=== PATIENT | female | born 1995 | race Caucasian/White ===

== ENCOUNTER 2020-04-26 02:03 | Inpatient (IN) ==
[2020-04-26] MEDS ORDERED: PENICILLIN G POTASSIUM 6 MU in DEXTROSE 5% 250 ML IV STA (02:34)
[2020-04-26] MEDS ORDERED: PENICILLIN G POTASSIUM 3 MU in DEXTROSE 5% 100 ML IV PRN (02:34)
[2020-04-26] MEDS ORDERED: OXYTOCIN 30 UNITS/500 ML BAG IV PRN ×2 (02:34→08:18)
[2020-04-26] MEDS ORDERED: LACTATED RINGER'S 1,000 ML IV PRN (02:34)
[2020-04-26 03:06] LABS: Hematocrit (blood only) 38.1 % (37-47); Hemoglobin 13.3 g/dL (12.0-16.0); Mean Corpuscular Hemoglobin 30.9 pg (25-34); Mean Corpuscular Hgb Conc 34.9 g/dL (32-36); Mean Corpuscular Volume 88.6 fL (80-100); Platelet Count 199 K/uL (130-400); RDW Coefficient of Variation 13.3 % (11.5-14.5); RDW Standard Deviation 42.7 fL (36.4-46.3); White Blood Count 12.98 K/uL (4.8-10.8)
--- NOTE | 2020-04-26 03:12 | Anesthesiology Consultation ---
Date of Service April 26, 2020 Assessment & Plan (1) Encounter for pre-operative examination: Chart Review Chart Review: Acceptable Risk for Surgery and Patient NOT seen in Pre Admission Testing Consults Requested none History Allergies Allergy/AdvReac Type Severity Reaction Status Date / Time No Known Allergies Allergy Verified 04/26/20 02:31 Medications Home Medications Medication Instructions Recorded Confirmed Last Taken prenat.vits,rola,ytq-oqdw-trsoq 1 tab PO DAILY 09/17/19 04/26/20 04/25/20 08:00 levothyroxine 150 mcg tablet 150 mcg PO DAILY #30 tab 03/04/20 04/24/20 04/25/20 06:00 Active Medications Generic Name Dose Route Start Last Admin Trade Name Freq PRN Reason Stop Dose Admin Penicillin G Potassium 6 mu/ 262 mls @ 262 mls/hr 04/26/20 02:34 04/26/20 02:53 Dextrose IV 04/26/20 03:33 250 mls/hr NOW STA Administration Lactated Ringer's 1,000 mls @ 125 mls/hr 04/26/20 02:34 04/26/20 02:50 Lr IV 04/28/20 02:33 125 mls/hr .Q8H PRN Administration L&D Protocol Protocol Past Medical History Medical History History of chicken pox Hypothyroidism Papillary carcinoma of thyroid Exercise / Class Metabolic Activity II 4-5 Yardwork/Stairs/Walk up hill Past Family History Family History Mother Breast cancer, Onset Age: 41 Mother got breast cancer at age 41 and 51 in the same location. Father Hypertension Myocardial infarction Dyslipidemia Grandmother (Maternal) Diabetes Past Surgical History Surgical History H/O total thyroidectomy (~12/2019) S/P wisdom tooth extraction (~2012) Past Anesthesia History No Hx of Anesthesia Complications and No Family Hx of Anesthesia Complications History of PONV No Hx of PONV and No Hx of Motion Sickness Social History Smoking Status: Never smoker Do You Dip or Chew Tobacco: No Hx Alcohol Use: No Hx Substance Use: No Physical Exam Vital Signs Last Vital Signs Pulse 107 H 04/26/20 03:09 BP 135/90 04/26/20 02:36 Pulse Ox 91 04/26/20 03:09 Testing Laboratory Results 04/26/20 02:48
--- NOTE | 2020-04-26 04:25 | History & Physical Report ---
Date of Service April 26, 2020 Assessment & Plan (1) Group B streptococcal infection during : 24yo at 39.4 weeks GA. Active labor 1. Fetus: Cat 1 2. Labor: Active 3. GBS Positive: PCN (2) Need for rhogam due to Rh negative mother: (3) Supervision of normal first : (4) Normal labor: History of Present Illness Primary Care Provider: Zofia Ayala, 24yo at 39.4 weeks GA. Presents in active labor. complicated by GBS positive, Hx thyroid cancer, Rh negative. OB Labs: Blood Type AB Negative 09/25/19 Antibody Screen NEGATIVE 02/07/20 Hemoglobin 11.6 g/dL (12.0-16.0) L 02/07/20 Hematocrit 34.4 % (37-47) L 02/07/20 Mean Corpuscular Volume 87.0 fL (80-100) 09/25/19 Platelet Count 318 K/uL (130-400) 09/25/19 Rubella IgG Antibody Immune (Immune) 09/25/19 Rapid Plasma Reagin Nonreactive (Nonreactive) 09/25/19 Hepatitis B Surface Antigen Neg (Neg) 09/25/19 HIV (1&2) Ab and P24 Ag, 4th Gener Neg (Neg) 09/25/19 Glucose 1 Hour 50 gm Load 101 mg/dl (70-130) 02/07/20 OB Optional Labs: Chlamydia trachomatis RNA NOT DETECTED (NOT DETECTED) 09/25/19 Neisseria gonorrhoeae RNA NOT DETECTED (NOT DETECTED) 09/25/19 Thyroid Stimulating Hormone (TSH) 0.586 uIu/ml (0.300-4.500) 03/28/20 Allergies Allergy/AdvReac Type Severity Reaction Status Date / Time No Known Allergies Allergy Verified 04/26/20 02:31 Home Medications Medication Instructions Recorded Confirmed Type prenat.vits,rola,lcf-qszu-nymrh 1 tab PO DAILY 09/17/19 04/26/20 History levothyroxine 150 mcg tablet 150 mcg PO DAILY #30 tab 03/04/20 04/24/20 Rx Patient History Medical History History of chicken pox Hypothyroidism Papillary carcinoma of thyroid Surgical History H/O total thyroidectomy (~12/2019) S/P wisdom tooth extraction (~2012) Family History Mother Breast cancer, Onset Age: 41 Mother got breast cancer at age 41 and 51 in the same location. 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 Feels Safe at Home: Yes Safety Concerns: Feels Safe At This Time Physical Exam Genitourinary: OB Exam Abdomen: + vertex Manual OB Exam: + cervical dilation 7 cm, + cervical effacement 90% and + station -1 OB Exam Monitor Tracing: + external FHT monitor used, + external uterine monitor used and + category I Results & Data ([facility]) Vital Signs (Past 12 Hours) Vital Signs Pulse BP Pulse Ox 04/26/20 02:56 99 H 89 L 04/26/20 02:53 111 H 100 04/26/20 02:48 96 H 99 04/26/20 02:43 101 H 99 04/26/20 02:36 129 H 135/90 04/26/20 02:25 126 H 135/101 H Coding Level of Care Code None Diagnoses Group B streptococcal infection during O98.819; B95.1 Need for rhogam due to Rh negative mother Z29.13 Supervision of normal first Z34.00 Normal labor O80; Z37.9
--- NOTE | 2020-04-26 04:27 | Labor Progress Brief Note ---
Date of Service April 26, 2020 Subjective Reason For Note: Routine Evaluation Current Pain Level(1-10): 10 Assessment & Plan (1) Group B streptococcal infection during : 24yo at 39.4 weeks GA. Active labor 1. Fetus: Cat 1 2. Labor: Active. Complete and will start pushing per patient request. SROM during exam 3. GBS Positive: PCN (2) Need for rhogam due to Rh negative mother: (3) Supervision of normal first : (4) Normal labor: Admission and Anticipated Discharge Date Admission Date: April 26, 2020 Physical Exam Genitourinary: OB Exam Abdomen: + vertex Manual OB Exam: + cervical dilation 10 cm, + cervical effacement 100%, + station + 1 and + amniotic fluid (SROM during exam) clear OB Exam Monitor Tracing: + external FHT monitor used, + external uterine monitor used, + category I and + normal FHT variability; no early decelerations present, no late decelerations present and no variable decelerations Results & Data ([facility]) Vital Signs (Past 12 Hours) Vital Signs Temp Pulse Resp BP Pulse Ox 04/26/20 04:22 105 H 100 04/26/20 04:17 103 H 100 04/26/20 04:12 118 H 91 04/26/20 04:07 119 H 97 04/26/20 04:06 110 H 90 04/26/20 04:02 117 H 98 04/26/20 03:57 115 H 99 04/26/20 03:52 99 H 91 04/26/20 03:45 119 H 93 04/26/20 03:40 116 H 100 04/26/20 03:36 114 H 92 04/26/20 03:35 106 H 98 04/26/20 03:30 111 H 100 04/26/20 03:17 111 H 92 04/26/20 03:16 111 H 98 04/26/20 03:11 104 H 98 04/26/20 03:09 107 H 91 04/26/20 03:06 103 H 97 04/26/20 03:05 36.7 C 56 L 18 87 L 04/26/20 03:01 56 L 87 L 04/26/20 02:56 99 H 89 L 04/26/20 02:53 111 H 100 04/26/20 02:48 96 H 99 04/26/20 02:43 101 H 99 04/26/20 02:36 129 H 135/90 04/26/20 02:25 126 H 135/101 H Coding Level of Care Code None Diagnoses Group B streptococcal infection during O98.819; B95.1 Need for rhogam due to Rh negative mother Z29.13 Supervision of normal first Z34.00 Normal labor O80; Z37.9
[2020-04-26] MEDS ORDERED: LIDOCAINE HCL 1% 20 ML VIAL ONE (06:54)
[2020-04-26] MEDS ORDERED: SUPERCREAM 0.870% 15 GM JAR EXT PRN (08:18)
[2020-04-26] MEDS ORDERED: HYDROCORTISONE ACETATE 25 MG SUPP PR PRN (08:18)
[2020-04-26] MEDS ORDERED: DIPHTHERIA/TETANUS/PERTUSSIS 0.5 ML SYR/VIAL IM ONE (08:18)
[2020-04-26] MEDS ORDERED: BENZOCAINE 20% AER SPR 82.5 GM CAN EXT PRN (08:18)
[2020-04-26] MEDS ORDERED: bisacodyL 10 MG SUPP PR PRN (08:18)
[2020-04-26] MEDS ORDERED: ACETAMINOPHEN 325 MG TAB PO PRN (08:18)
[2020-04-26] MEDS: LEVOTHYROXINE SODIUM 150 MCG TABLET PO SCH ×2 (09:05→09:06)
--- NOTE | 2020-04-26 10:49 | Delivery Summary ---
DATE OF OPERATION: 04/26/2020 PROCEDURE: Normal spontaneous vaginal delivery with periurethral and sulcal laceration repairs. SURGEON: Sean Cooper MD PREOPERATIVE DIAGNOSES: 1. Single intrauterine at 39 weeks 4 days gestational age. 2. Labor. 3. GBS positive. 4. Rh negative. POSTOPERATIVE DIAGNOSES 1. Single intrauterine at 39 weeks 4 days gestational age. 2. Labor. 3. GBS positive. 4. Rh negative. 5. Status post delivery. ESTIMATED BLOOD LOSS: 400 mL. DRAINS: Straight cath at the completion of the case. URINE OUTPUT: Approximately 500 mL per straight catheterization. COMPLICATIONS: None. FINDINGS: A viable male with weight pending and Apgars of 8 and 9 at 1 and 5 minutes respectively. HOSPITAL COURSE: The patient presented at 39 weeks 4 days gestational age in active labor. At initial evaluation, she was found to be 7-8 cm dilated in active labor. The patient progressed without augmentation. When the patient was being checked at approximately 2:30 a.m., she underwent spontaneous rupture of membranes for clear fluid. The patient was noted to be complete at that time with a strong urge to push and pushed for approximately 2-1/2 to 3 hours to achieve delivery. DESCRIPTION OF PROCEDURE: The patient progressed to 10 cm dilated, 100% effaced, +1 station, pushed over intact perineum with ____ without anesthesia and delivered a viable male with weight and Apgars as noted above. Head of the delivered in PATEL position, rest into right transverse. No nuchal cord was noted. Body and shoulders quickly followed. was noted to be vigorous upon delivery and was delivered to the maternal abdomen. A 1-minute delayed cord clamping was initiated after which the cord was double clamped and cut. remained on maternal abdomen. Cord blood was then obtained. Attention was then turned to delivery of the placenta, which was delivered intact, 3-vessel cord with gentle cord traction. On inspection of the perineum, vagina, and cervix, there was noted to be a periurethral laceration, which was repaired with 3-0 Vicryl in an interrupted stitch. There was also noted to be a right sulcal laceration, which was repaired with 3-0 Vicryl in a continuous running stitch. Needle, sponge and instrument counts were correct at the completion of the case with mother and stable in the immediate post-delivery period. I attest to the content of the Intraoperative Record and any orders documented therein. Any exception s are noted below.
[2020-04-26] MEDS ORDERED: COUGH DROP (SUGAR FREE) LOZ 24 LOZ/1 BOX BUCCAL ONE (11:53)
[2020-04-26] MEDS: IBUPROFEN 600 MG TAB PO PRN (20:16)
[2020-04-26] MEDS: DOCUSATE SODIUM 100 MG CAP PO SCH (20:17)
[2020-04-27] MEDS: IBUPROFEN 600 MG TAB PO PRN ×3 (04:55→20:46)
[2020-04-27] MEDS: LEVOTHYROXINE SODIUM 150 MCG TABLET PO SCH (06:27)
[2020-04-27 07:24] LABS: Hematocrit (blood only) 30.6 % (37-47); Hemoglobin 10.4 g/dL (12.0-16.0)
[2020-04-27] MEDS: PRENATAL VITAMIN 1 TAB PO SCH (07:48)
[2020-04-27] MEDS: DOCUSATE SODIUM 100 MG CAP PO SCH ×2 (07:49→20:44)
--- NOTE | 2020-04-27 08:00 | Obstetrical Progress Note ---
Date of Service April 27, 2020 Assessment & Plan (1) Encounter for care and examination after delivery: satisfactory progress continue current care plan Day #:: 1 Subjective Ambulation: ambulating normally Voiding: no voiding problems Passing Gas:: Yes Diet Tolerance:: regular diet Lochia:: Small Feeding Type:: breast feeding Physical Exam Constitutional WD/WN, vitals as above Psychiatric A+Ox3, euthymic affect Genitourinary OB Exam Abdomen: + fundal height (1 below U) Fundus: + firm Results & Data ([facility]) Vital Signs (Past 12 Hours) Vital Signs Temp Pulse Resp BP 04/27/20 04:50 97.9 F 85 16 117/76 04/27/20 00:25 97.9 F 90 16 113/72 04/26/20 19:50 98.1 F 96 H 16 125/86
[2020-04-27] MEDS ORDERED: bisacodyL 5 MG TABEC PO SCH (20:00)
[2020-04-27 23:16] VITALS: PULSE 77
[2020-04-28] MEDS: IBUPROFEN 600 MG TAB PO PRN (06:21)
[2020-04-28] MEDS: LEVOTHYROXINE SODIUM 150 MCG TABLET PO SCH (06:21)
--- NOTE | 2020-04-28 07:08 | Obstetrical Progress Note ---
Date of Service <Roland Hermosillo MD - Last Filed: 04/28/20 07:16> April 28, 2020 Assessment & Plan <Roland Hermosillo MD - Last Filed: 04/28/20 07:16> (1) : A/P: Jossy Littlejohn is a 24 y/o female on PPD#2 following at 39+4 weeks. * Patient feels well today; eating well, voiding well, ambulating well * Pain well-controlled with ibuprofen 600mg q4h prn * PNL: Rh pos, RI, GBS pos, COVID neg * Routine postcesarean care: OOB, ambulation, diet progression as tolerated * After discharge, will have six-week follow-up with Dr. Cooper Subjective <Roland Hermosillo MD - Last Filed: 04/28/20 07:16> Jossy Littlejohn is a 24 y/o female on PPD#2 following at 39+4 weeks. She reports feeling well overall this morning. Minimal abdominal cramping and 1/10 pain well managed on analgesics. Voiding well. Tolerating meals overnight without difficulty. Patient has been able to ambulate some. Has persistent lochia with good improvement this morning. Currently . Physical Exam <Roland Hermosillo MD - Last Filed: 04/28/20 07:16> General: alert, oriented, no acute distress Cardiac: regular rate and rhythm, no murmurs appreciated Respiratory: lungs clear to auscultation bilaterally a/p, no wheezes/ rales/rhonchi, no increased work of breathing, symmetrical chest rise, no respiratory distress Abdomen: soft, minimally tender, nondistended, bowel sounds present Uterus: uterine fundus firm, palpable 4cm below umbilicus Lower extremities: no lower extremity edema or swelling, no deep calf pain, Peter's negative bilaterally Results & Data ([facility]) <Roland Hermosillo MD - Last Filed: 04/28/20 07:16> Vital Signs (Past 12 Hours) Vital Signs Temp Pulse Resp BP 04/27/20 23:10 36.5 C 77 18 106/56 L <Nella Boston MD, FACOG - Last Filed: 04/28/20 07:21> Co-Signing Physician Notes Resident Physician Supervision Note: I interviewed and examined the patient. Discussed with Dr. Hermosillo and agree with findings and plan as documented in the note. Any exceptions or clarifications are listed here: [None] Documented By: Nella Boston MD, FACOG Resident Activity Tracking <Roland Hermosillo MD - Last Filed: 04/28/20 07:16> Resident Involvement: Resident Care Provided Care Provided: OB Delivery
[2020-04-28] MEDS: DOCUSATE SODIUM 100 MG CAP PO SCH (07:58)
[2020-04-28] MEDS: PRENATAL VITAMIN 1 TAB PO SCH (07:58)
[2020-04-28 08:38] VITALS: BP 130/91; TEMP 97.9; O2SAT 98
== END 2020-04-28 11:30 | disposition home or self-care (01) | DRG 807 ==
LOC: OPB 02:03 → 4S1 02:06 → 4S2 14:33

== ENCOUNTER 2024-08-07 09:43 | Inpatient (IN) ==
[2024-08-07] MEDS ORDERED: LACTATED RINGER'S 1,000 ML IV PRN (10:03)
[2024-08-07] MEDS ORDERED: LIDOCAINE 1% LOCAL 20 ML VIAL INFIL PRN (10:03)
[2024-08-07] MEDS ORDERED: OXYTOCIN 30 UNITS/NSS 30 UNITS/500 ML BAG IV PRN ×2 (10:03→10:41)
--- NOTE | 2024-08-07 10:16 | History & Physical Report ---
Date of Service August 07, 2024 Assessment & Plan (1) Hypothyroidism during : (2) Supervision of normal intrauterine in multigravida: (3) Precipitate labor: Plan see delivery note Admission and Anticipated Discharge Date Admission Date: August 07, 2024 History of Present Illness Chief Complaint: active labor Primary Care Provider: Zofia Ayala, DO 29 yo at 39 5/7 wga presents in active labor. Ctx started around 630 irreg and then rapidly progressed to frequent and painful ctx Allergies Allergy/AdvReac Type Severity Reaction Status Date / Time No Known Allergies Allergy Verified 08/02/24 10:18 Home Medications Medication Instructions Recorded Confirmed Type prenat.vits,rola,wik-affe-ufkvv 1 tab PO DAILY 09/17/19 08/02/24 History breast pump #1 ea 06/15/24 08/02/24 Rx levothyroxine 125 mcg tablet 125 mcg PO .COMPLEX #50 tabs 07/27/24 08/02/24 Rx Patient History Medical History History of chicken pox Surgical History H/O total thyroidectomy (~12/2019) S/P wisdom tooth extraction (~2012) Family History Mother Breast cancer, Onset Age: 41 Father Hypertension Myocardial infarction Dyslipidemia Grandmother (Maternal) Diabetes Social History (Updated 12/27/23 @ 09:56 by Whitney Guerra) Smoking Status: Never smoker Do You Dip or Chew Tobacco: No; Hx Alcohol Use: No Hx Substance Use: No Preferred Language: Hong Konger 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: 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 Beliefs That Will Affect Care: None marital status: marital status details: Henry Littlejohn (30) [phone] Current Living Situation: Spouse Current Living Situation Comment: lives with spouse, son, 4 cats, spouse to change litter current occupational status: employed current occupation: [employer] Feels Safe at Home: Yes Assistive Devices: None Physical Exam Genitourinary: FHT 130s-140s just before delivery Results & Data Vital Signs (Past 12 Hours) Vital Signs Pulse BP 08/07/24 10:02 84 155/86 H Coding Level of Care Code None Diagnoses Hypothyroidism during O99.280; E03.9 Supervision of normal intrauterine in multigravida Z34.80 Precipitate labor O62.3
--- NOTE | 2024-08-07 10:17 | Delivery Summary ---
Vaginal Delivery Summary Date of Service August 07, 2024 Vaginal Delivery Summary [facility] PREOPERATIVE DIAGNOSIS: 1. Single intrauterine at 39 5/7 wga 2. Active labor 3. Hx thyroid cancer 4. Rh neg POSTOPERATIVE DIAGNOSIS: 1. Single intrauterine at 39 5/7 wga 2. Precipitous delivery 3. Hx thyroid cancer 4. Rh neg 5. Delivered PROCEDURE: 1. Normal spontaneous vaginal delivery. SURGEON: Paris Levine MD ANESTHESIA: None QUANTITATIVE BLOOD LOSS: 101 mL FLUIDS: Continuous LR. URINE OUTPUT: None. COMPLICATIONS: None. CONDITION: Stable. INDICATIONS: 29 yo at 39 5/7 presented in active labor with contractions beginning about 3 hours prior. On arrival was 10cm and subsequently had SROM and desired to push. FINDINGS: A viable female infant, weight pending with Apgars of 8 and 9 at 1 and 5 minutes respectively. SPECIMEN: Cord blood OPERATIVE REPORT: The patient progressed to 10 cm, 100% effaced and +2 station, pushed over intact perineum with anesthesia to deliver a viable female infant, weight and Apgars as above. Head of delivered in ALEXY position with light meconium noted. No nuchal cord was present. Body and shoulders were delivered without difficulty. was delivered to maternal abdomen and nursing staff. Delayed cord clamping was performed for 60 seconds. Cord was clamped and cut. Cord blood was obtained. Placenta delivered spontaneously intact with 3-vessel cord. IV oxytocin and fundal massage were given for excellent hemostasis. Vagina, cervix, perineum, and placenta were inspected. A small tear was repaired at the introitus with 3-0 vicryl in a figure of eight stitch. Hemostatic L periurethral abrasion did not need repaired. There was excellent hemostasis. Sponge and needle counts correct x2. No sponges were left behind. Mother and stable in immediate period. [facility] Vaginal Delivery Charge Vaginal Delivery Codes: 10714 global code for the antepartum, delivery, and post- Delivery Type Details: [facility]
[2024-08-07 10:37] LABS: Hematocrit (blood only) 37.4 % (37.0-47.0); Mean Corpuscular Hemoglobin 30.9 pg (25.0-34.0); Mean Corpuscular Hgb Conc 34.8 g/dL (32.0-36.0); Mean Corpuscular Volume 88.8 fL (80.0-100.0); Platelet Count 173 K/uL (130-400); RDW Coefficient of Variation 13.1 % (11.5-14.5); RDW Standard Deviation 42.4 fL (36.4-46.3); Red Blood Count 4.21 M/uL (4.20-5.40); White Blood Count 8.95 K/ul (4.8-10.8)
[2024-08-07] MEDS ORDERED: HYDROCORTISONE ACETATE 25 MG SUPP PR PRN (10:41)
[2024-08-07] MEDS ORDERED: BENZOCAINE 20% SPRY 85 APPLN/85 GM CAN EXT PRN (10:41)
[2024-08-07] MEDS ORDERED: ACETAMINOPHEN 325 MG TAB PO PRN (10:41)
[2024-08-07] MEDS ORDERED: bisacodyL 10 MG SUPP PR PRN (10:41)
[2024-08-07] MEDS: DIPHTHER/TETAN/PERTUS Vaccine (Tdap, Adol/Adult) 0.5mL IM ONE (10:50)
[2024-08-07] MEDS: IBUPROFEN 600 MG TAB PO PRN (14:12)
[2024-08-07 19:54] VITALS: O2SAT 99
[2024-08-07] MEDS: DOCUSATE SODIUM 100 MG CAP PO SCH (20:12)
[2024-08-08 04:17] VITALS: RESP 16
[2024-08-08] MEDS: LEVOTHYROXINE SODIUM 125 MCG TABLET PO SCH (05:38)
[2024-08-08 06:01] LABS: Hematocrit (blood only) 35.4 % (37.0-47.0); Hemoglobin 12.1 g/dl (12.0-16.0); Mean Corpuscular Hemoglobin 30.6 pg (25.0-34.0); Mean Corpuscular Hgb Conc 34.2 g/dL (32.0-36.0); Mean Corpuscular Volume 89.4 fL (80.0-100.0); Mean Platelet Volume 9.9 fL (9.4-12.4); Platelet Count 160 K/uL (130-400); RDW Coefficient of Variation 13.2 % (11.5-14.5); RDW Standard Deviation 42.9 fL (36.4-46.3); Red Blood Count 3.96 M/uL (4.20-5.40); White Blood Count 10.83 K/ul (4.8-10.8)
--- NOTE | 2024-08-08 06:11 | Obstetrical Progress Note ---
Date of Service <Pieter Ardon MD - Last Filed: 08/08/24 06:50> August 08, 2024 Assessment & Plan <Pieter Ardon MD - Last Filed: 08/08/24 06:50> (1) care and examination: (2) Hypothyroidism: Plan PPD1 s/p ppt at 39+ wga: Stable. Rh neg (rhogam 04/20/24), gbs neg, ri, vitals & H/H wnl Continue routine care, OOB and ambulation, diet as tolerated Plan for DC at 24h if cleared by Peds Will follow up w/ endo at 8 weeks <Paris Levine MD - Last Filed: 08/08/24 07:00> (1) care and examination: (2) Hypothyroidism: Subjective <Pieter Ardon MD - Last Filed: 08/08/24 06:50> Patient is a 29yo who is PPD#1 following at 39 5/7 weeks. Abd pain/cramping mild, well managed on analgesics Voiding w/o issue Tolerating meals Ambulating normally +passing gas Lochia minimal, diminishing Planning to breastfeed. Constitutional: no fever, no chills or no sweats Respiratory: no dyspnea Cardiovascular: no chest pain, no palpitations or no calf pain Breast: no breast pain Gastrointestinal: no nausea or no vomiting Genitourinary (female): no dysuria Neurologic: no headache(s) no changes in vision, no headaches Physical Exam <Pieter Ardon MD - Last Filed: 08/08/24 06:50> General: Alert, oriented. No acute distress. Cardiac: Regular rate and rhythm, no murmurs, rubs, or gallops. Respiratory: Clear to auscultation bilaterally. No increased work of breathing. Symmetrical chest rise. No respiratory distress. Abdomen: Soft, nontender, nondistended. Bowel sounds present. Uterus: Uterine fundus firm, nontender, palpable 1 cm below the umbilicus. Lower extremities: No lower extremity edema or swelling. No deep calf pain. Results & Data <Pieter Ardon MD - Last Filed: 08/08/24 06:50> Vital Signs (Past 12 Hours) Vital Signs Temp Pulse Resp BP Pulse Ox O2 Del Method 08/08/24 04:00 36.6 C 62 16 129/87 99 Room Air 08/08/24 00:00 36.5 C 78 18 134/84 99 Room Air 08/07/24 19:30 36.9 C 69 16 128/79 99 Room Air Laboratory Results 08/08/24 05:34 Supervising Physician <Paris Levine MD - Last Filed: 08/08/24 07:00> Co-Signing Physician Notes Resident Physician Supervision Note: I interviewed and examined the patient. Discussed with Dr. Ardon and agree with findings and plan as documented in the note. Any exceptions or clarifications are listed here: PP1 s/p precipitous , doing well. VSS, exam benign. Desires dc today, ok for dc Documented By: Paris Levine MD Resident Activity Tracking <Pieter Ardon MD - Last Filed: 08/08/24 06:50> Resident Involvement: Resident Care Provided Care Provided: Adult Hospital Medicine and OB Delivery
[2024-08-08] MEDS: PRENATAL VITAMIN 1 TAB PO SCH (08:42)
[2024-08-08 10:29] VITALS: PULSE 65; TEMP 99.3
[2024-08-08 11:51] VITALS: BP 128/87
[2024-08-08] MEDS ORDERED: bisacodyL 5 MG TABEC PO SCH (20:00)
[2024-08-11] MEDS ORDERED: LEVOTHYROXINE SODIUM 125 MCG TABLET PO SCH (07:30)
== END 2024-08-08 14:30 | disposition home or self-care (01) | DRG 807 ==
LOC: OPB 09:43 → 4S1 09:44 → 4E2 12:57